=== PATIENT | female | born 1950 | race Caucasian/White ===

== ENCOUNTER 2016-08-29 00:32 | Emergency (ER) | payer MEDICARE, OTHER ==
[2016-08-30] MEDS ORDERED: LIDOCAINE 1% 2 ML VIAL ONE (08:11)
== END 2016-08-29 01:04 | disposition home or self-care (01) ==
DX: I10 Essential (primary) hypertension (principal)

== ENCOUNTER 2016-09-01 07:27 | Emergency (ER) | payer MEDICARE, OTHER ==
--- NOTE | 2016-09-01 08:03 | ED Physician Documentation ---
History of Present Illness - Stated complaint Stated Complaint: HIGH BP - Chief complaint Chief Complaint: General - Additonal information Additional information: hx from pt 65 female known HTN long standing good control of lisinopril 30 QD and HCTZ 50 QD her old PMD became a hospitalist and her new PMD stopped the HCTZ and changed to amlodopine amplodopine caused an allergic rxn so it was stopped now her BP has been running high seen 2 days ago for asymptomatic HTN in ED, dc to keep a log of BPs and fup PMD followed up PMD and HCTZ 25 QD was started, first dose was last night overnight she was checking her BP and it was still high she called nurse line and referred back to the ED per retail shift supervisor doc her PMD called the ER and advised that he felt pt needed blood work and should be started on a BB (but her HR is only 62) pt has a mild NAGEL, no CP numbness weakness Review of Systems Constitutional: denies: Fever, Chills Eyes: denies: Loss of vision, Decreased vision Cardiac: denies: Chest pain / pressure, Palpitations Respiratory: denies: Dyspnea GI: denies: Abdominal Pain Neurologic: reports: Headache (mild). denies: Focal weakness, Numbness Immunocompromised: denies: Immunocompromised PD PAST MEDICAL HISTORY - Past Medical History Cardiovascular: Hypertension - Past Surgical History Past Surgical History: No General: Cholecystectomy, Appendectomy /DATABASE TESTER: Hysterectomy - Present Medications Home Medications: Ambulatory Orders Medication Instructions Recorded Confirmed Lisinopril [Zestril] 30 mg PO DAILY 08/29/16 09/01/16 Hydrochlorothiazide 25 mg PO DAILY 09/01/16 09/01/16 - Allergies Allergies/Adverse Reactions: Allergies Allergy/AdvReac Type Severity Reaction Status Date / Time amlodipine Allergy Rash Verified 09/01/16 07:33 Penicillins Allergy Rash Verified 09/01/16 07:33 - Social History Does the pt smoke?: No Smoking Status: Never smoker Does the pt drink ETOH?: No Does the pt have substance abuse?: No - Immunizations Immunizations are current?: Yes - POLST Patient has POLST: No PD ED PE NORMAL - Vitals Vital signs reviewed: Yes - General General: Alert and oriented X 3 - HEENT HEENT: PERRL, Other (unable to visualize fundi without dilated exam) - Neck Neck: Supple, no meningeal sign - Cardiac Cardiac: RRR - Respiratory Respiratory: No respiratory distress, Clear bilaterally - Neuro Neuro: Alert and oriented X 3, receiving clerk 2-12 intact, No motor deficit, No sensory deficit Results - Vitals Vitals: Vital Signs - 24 hr 09/01/16 07:30 Temperature 35.8 C L Heart Rate 62 Respiratory 16 Rate Blood Pressure 198/79 H O2 Saturation 100 Oxygen O2 Source Room air - Labs Labs: Laboratory Tests 09/01/16 09/01/16 08:25 08:25 WBC 5.7 RBC 4.31 Hgb 12.9 Hct 37.2 MCV 86.5 MCH 30.0 MCHC 34.7 RDW 13.1 Plt Count 286 MPV 9.3 Neut # 3.3 Lymph # 1.7 [place] # 0.6 Eos # 0.1 Baso # 0.1 Absolute Nucleated RBC 0.00 Nucleated RBCs 0.0 Sodium 134 L Potassium 3.4 L Chloride 99 L Carbon Dioxide 26 Anion Gap 9.0 BUN 9 Creatinine 0.7 Estimated GFR (MDRD) 84 L Glucose 108 H Calcium 9.5 PD MEDICAL DECISION MAKING - ED course ED course: fairly asymtomatic HTN after meds changes by PMD sent to ER for blood work and med adjustment will check blood work UA HR 62 so do not think BB a good idea pt reports long time control of BP with lisinopril 30 QD and HCTZ 50 QD so makes sense to resume that regimen Departure - Departure Disposition: 01 Home, Self Care Clinical Impression: Hypertension Qualifiers: Hypertension type: essential hypertension Qualified Code(s): I10 - Essential ( primary) hypertension Condition: Good Instructions: ED HTN Established Comments: Your labs were fine except for slightly low potassium and sodium - these should be monitored periodically by your PMD while you are on the diuretic Recommend taking lisinopril 30 mg daily and HCTZ 50 mg daily which has worked well for you in the past. Keep a log of you blood pressures and follow up with your PMD by phone to discuss and make any further medication adjustments as needed
[2016-09-01] MEDS ORDERED: hydroCHLOROthiazide 25 MG TABLET ONE (08:11)
[2016-09-01] MEDS ORDERED: ACETAMINOPHEN 325 MG TABLET PO ONE (08:11)
[2016-09-01] MEDS: hydroCHLOROthiazide 25 MG TABLET PO STA (08:17)
[2016-09-01] MEDS: ACETAMINOPHEN 325 MG TABLET PO STA (08:17)
[2016-09-01 08:50] LABS: BASOPHILS # (AUTO) 0.1 10^3/uL (0.0-0.1); BASOPHILS % (AUTO) 1.2 %; EOSINOPHILS # (AUTO) 0.1 10^3/uL (0.0-0.7); EOSINOPHILS % (AUTO) 1.2 %; HCT - HEMATOCRIT 37.2 % (37.0-47.0); HGB - HEMOGLOBIN 12.9 g/dL (12.0-16.0); LYMPHOCYTES # (AUTO) 1.7 10^3/uL (1.5-3.5); LYMPHOCYTES % (AUTO) 29.5 %; MEAN CORPUSCULAR HGB CONC 34.7 g/dL (32.0-36.0); MEAN CORPUSCULAR VOLUME 86.5 fL (81.0-99.0); MEAN PLATELET VOLUME 9.3 fL (7.9-10.8); MONOCYTES # (AUTO) 0.6 10^3/uL (0.0-1.0); MONOCYTES % (AUTO) 9.7 %; NEUTROPHILS # (AUTO) 3.3 10^3/uL (1.5-6.6); NEUTROPHILS % (AUTO) 58.4 %; RED BLOOD COUNT 4.31 10^6/uL (4.20-5.40); RED CELL DISTRIBUTION WIDTH 13.1 % (12.0-15.0); UNCORRECTED WHITE BLOOD COUNT 5.7 x10^3/uL; WHITE BLOOD COUNT 5.7 x10^3/uL (4.8-10.8)
[2016-09-01 08:54] LABS: CALCIUM 9.5 mg/dL (8.5-10.3); CREATININE 0.7 mg/dL (0.4-1.0); POTASSIUM 3.4 mmol/L (3.5-5.0)
[2016-09-01] MEDS ORDERED: POTASSIUM CHLORIDE 20 MEQ TABLET PO ONE (09:41)
[2016-09-01] MEDS: POTASSIUM CHLORIDE 20 MEQ TABLET PO STA (09:45)
[2016-09-01 09:47] VITALS: BP 172/68
[2016-09-01 09:56] LABS: BILIRUBIN,URINE NEGATIVE (NEGATIVE)
[2016-09-01 10:02] LABS: UA CHARGE (STRIP ONLY) YES; UR CULTURE IF IND NOT INDICATED
== END 2016-09-01 09:48 | disposition home or self-care (01) ==
LOC: ED 07:27
DX: I10 Essential (primary) hypertension (principal)
CPT/HCPCS: 36415; 80048; 80053; 81001; 81003; 83690; 85025; 87086; 99283